=== PATIENT | male | born 1970 | race Caucasian/White ===

== ENCOUNTER 2020-08-26 12:58 | Outpatient (CLI) | payer BC | END 2020-08-26 12:59 | disposition home or self-care (01) | LOC: CSHMRI 12:58 | PROVIDERS: ATTEND Orthopaedic Surgery | DX: S46.912A Strain of unspecified muscle, fascia and tendon at shoulder and upper arm level, left arm, initial encounter (principal); S46.012A Strain of muscle(s) and tendon(s) of the rotator cuff of left shoulder, initial encounter; R93.6 Abnormal findings on diagnostic imaging of limbs ==